=== PATIENT | male | born 1995 | race Caucasian/White ===

== ENCOUNTER 2019-08-07 11:20 | Emergency (ER) | payer BC, SELFPAY ==
--- NOTE | 2019-08-07 11:36 | ED.GENADULT ---
HPI - General Adult General Chief complaint: Wound/Laceration Stated complaint: stitches removal Time Seen by Provider: 08/07/19 11:38 Source: patient and RN notes reviewed Mode of arrival: ambulatory Limitations: no limitations History of Present Illness HPI narrative: This patient accidentally cut the palmar distal aspect of the left index finger on a piece of glass on a door handle at the [employer] on 07/23/2019. He went to [place] emergency room and had the laceration repaired with 6 interrupted sutures. He has done well since. Is been no redness or drainage. He has had no numbness or tingling sensation in the finger. He is left-handed. He did not receive any other injuries. He is otherwise felt well without any ear pain, no nasal drainage, no sore throat, no fever, no cough. He has had no nausea, no vomiting, no diarrhea. He has had no hematuria, no dysuria, no pyuria. He has has no rashes. Related Data Allergies Allergy/AdvReac Type Severity Reaction Status Date / Time Penicillins Allergy Mild Rash Verified 07/20/19 02:28 tramadol Allergy Unknown ITCHING, Verified 07/20/19 02:28 CANT SLEEP Review of Systems Review of Systems: Narrative: CONSTITUTIONAL: Denies fever, chills, or sweats. Noncontributory except as pertains to the past medical history and history of present illness. EYES: Denies visual changes, redness, or discharge. ENT: Denies rhinorrhea, congestion, sore throat, or otalgia. CARDIOVASCULAR: Denies chest pain, palpitations, or edema. RESPIRATORY: Denies cough or dyspnea. GASTROINTESTINAL: Denies abdominal pain, nausea, vomiting, or diarrhea. GENITOURINARY: Denies dysuria or hematuria. SKIN: Denies rash or itching. MUSCULOSKELETAL: Denies back pain, joint pain, or myalgia. NEUROLOGIC: Denies headache, numbness, or weakness. PSYCHIATRIC: Denies anxiety or depression. [facility] Past Medical History Medical History (Updated 08/07/19 @ 11:48 by Jose Herman MD) Asthma Migraines Peritonsillar abscess Thumb fracture right Surgical History Surgical History (Updated 07/20/19 @ 02:30 by Michelle Iraheta) H/O peritonsillar abscess drainage History of tonsillectomy and adenoidectomy Social History Social History (Updated 07/20/19 @ 02:34 by Michelle Iraheta) Smoking packs per day: 0.25 Smoking cigarettes per day: 5.0 Smoking status: Current every day smoker Comments At time of signature, I have reviewed and agree with nursing past medical, surgical, social, and family history.Please see nursing chart for further information. There is no relevant family history pertinent to the presenting complaint. Exam Narrative: Exam Narrative: GENERAL: Well-appearing, well-nourished, and in no acute distress. HEAD: Normocephalic, atraumatic. EYES: PERRLA and EOMI. EARS: TM's clear bilaterally and the canals are clear. NOSE: Nares clear, no rhinorrhea or epistaxis. THROAT:Mucous membranes moist.Oropharynx normal without erythema or exudates. NECK: Supple. No adenopathy of the neck, supraclavicular, axillary, or inguinal areas. RESPIRATORY: No respiratory distress. Airway patent. Respirations non-labored. Clear to auscultation. There are no wheezes, no rales, no retractions, no use accessory muscle respirations. Patient's not cyanotic and not dyspneic. HEART: Regular rate and rhythm. No murmur heard. Normal peripheral pulses. ABDOMEN: Soft, nontender, nondistended, normal active bowel sounds.No masses. No rebound or guarding, No organomegaly. There is no CVA pain. No pain McBurney's point. He has a negative Spence sign negative Rovsing sign. There are no pulsatile masses or audible bruits. EXTREMITIES: No clubbing/cyanosis/ edema. Normal strength & range of motion. The extreme exam is normal except for the left index finger where he has a laceration which is approximately 2 cm in length semi-curved over the palmar distal aspect of the left ring finger more over the ulnar side than the radial side and
[2019-08-07 11:38] VITALS: BP 134/91; PULSE 88; RESP 16; TEMP 36.3; O2SAT 98
== END 2019-08-07 11:53 | disposition home or self-care (01) ==
PROVIDERS: Emergency Provider Family Medicine; PCP Emergency Medicine
DX: S61.211D Laceration without foreign body of left index finger without damage to nail, subsequent encounter (principal); W25.XXXD Contact with sharp glass, subsequent encounter; J45.909 Unspecified asthma, uncomplicated; F17.200 Nicotine dependence, unspecified, uncomplicated
CPT/HCPCS: 99211; G0463

== ENCOUNTER 2023-01-31 17:20 | Emergency (ER) | payer SELFPAY ==
[2023-01-31 17:32] VITALS: BP 138/87; PULSE 106; RESP 16; TEMP 37.2; O2SAT 99
--- NOTE | 2023-01-31 18:24 | ED.SKABFB ---
HPI - Skin/Abscess/Foreign Bdy General Chief complaint: Skin/Abscess/Foreign Body Stated complaint: lump on neck Time Seen by Provider: 01/31/23 18:25 Source: patient Mode of arrival: ambulatory Limitations: no limitations History of Present Illness HPI narrative: 28-year-old male presented for complaint of nodule to the neck. He states he noticed it about 3 weeks ago and at that time it was about the size of a pea, it has increased in size. Denies tenderness, redness, or drainage to the site. Denies difficulty swallowing or breathing. Endorses a ?pulling? sensation when he tilts his head back. Related Data Allergies Allergy/AdvReac Type Severity Reaction Status Date / Time Penicillins Allergy Mild Rash Verified 12/02/21 09:20 tramadol Allergy Unknown ITCHING, Verified 12/02/21 09:20 CANT SLEEP Review of Systems Review of Systems: CONSTITUTIONAL: Denies body aches, fever, chills, or sweats. EYES: Denies visual changes, redness, or discharge. ENT: Denies rhinorrhea, congestion CARDIOVASCULAR: Denies chest pain, palpitations, or edema. RESPIRATORY: Denies cough or dyspnea. GASTROINTESTINAL: Denies abdominal pain, nausea, vomiting, or diarrhea. SKIN: per HPI MUSCULOSKELETAL: Denies back pain, joint pain, or myalgia. NEUROLOGIC: Denies headache, numbness, tingling, or weakness. [facility] Past Medical History Medical History ADHD Asthma Environmental allergies Peritonsillar abscess Thumb fracture right Surgical History Surgical History H/O peritonsillar abscess drainage (~08/2012) History of tonsillectomy and adenoidectomy (~08/2012) Social History Social History Smoking packs per day: 0.25 Smoking cigarettes per day: 5.0 Years smoked: 9 Smoking pack-years: 2.25 Smoking status: Current every day smoker Tobacco type: cigarettes Alcohol intake: current Substance use: never Substance use type: does not use Living arrangements: with family Occupation/Education: occupation Additional occupation/education comments: [employer] Gender identity (if verbalized by the patient): Male Comments At time of signature, I have reviewed and agree with nursing past medical, surgical, social and family history unless otherwise noted. Please see nursing chart for further information. There is no relevant family history pertinent to the presenting complaint Exam Narrative: GENERAL: Well-appearing HEAD: Normocephalic, atraumatic. EYES: conjunctivae clear, and EOMI. ENT: Mucous membranes moist. Oropharynx without edema, erythema or lesions. NECK: Supple. No lymphadenopathy CHEST: Clear to auscultation. HEART: Regular rate and rhythm. SKIN: Warm, dry. approx 1cm diameter soft moveable nodule to anterior neck just left of midline, no erythema, induration, tenderness or fluctuance NEURO: Alert and oriented x3. Course Course Emergency Course: Patient is aware of diagnosis, understands and agrees to treatment plan. Anticipatory guidance given. Patient agrees to follow-up as directed and is aware of reasons to seek care at the emergency department. Portions of this record may have been created with voice recognition software Level of Care: Express Care Visit Vital Signs Vital signs: Vital Signs Temperature 98.9 F 01/31/23 17:32 Pulse Rate 106 H 01/31/23 17:32 Respiratory Rate 16 01/31/23 17:32 Blood Pressure 138/87 01/31/23 17:32 Pulse Oximetry 99 01/31/23 17:32 Oxygen Delivery Room Air 01/31/23 17:32 Temperature 98.9 F 01/31/23 17:32 Pulse Rate 106 H 01/31/23 17:32 Respiratory Rate 16 01/31/23 17:32 Blood Pressure 138/87 01/31/23 17:32 Pulse Oximetry 99 01/31/23 17:32 Oxygen Delivery Room Air 01/31/23 17:32 Reviewed MDM - Skin/Abscess/Foreign Bd
== END 2023-01-31 18:41 | disposition home or self-care (01) ==
PROVIDERS: Emergency Provider Nurse Practitioner Family; PCP Family Medicine
DX: R22.1 Localized swelling, mass and lump, neck (principal); F17.210 Nicotine dependence, cigarettes, uncomplicated; J45.909 Unspecified asthma, uncomplicated
CPT/HCPCS: 99211; G0463

== ENCOUNTER 2024-01-15 15:49 | Emergency (ER) | payer SELFPAY ==
--- NOTE | 2024-01-15 15:52 | ED.NECK ---
HPI - Neck Pain/Injury General Chief Complaint: Neck Pain/Injury Stated Complaint: neck pain Time Seen by Provider: 01/15/24 15:52 Source: patient Mode of arrival: ambulatory Limitations: no limitations History of Present Illness HPI Narrative: Clark is a 29-year-old male patient presenting to the clinic today with complaints right-sided neck/shoulder pain. He reports he woke up with neck and shoulder pain 2-3 days ago. States no known injury. Denies having a headache but is having a sharp shooting sensation going into his right ear. He denies any fever, chills, URI symptoms, or any meningeal signs. Related Data Allergies Allergy/AdvReac Type Severity Reaction Status Date / Time Penicillins Allergy Mild Rash Verified 01/15/24 16:00 Review of Systems Review of Systems: Pertinent positives per HPI. Patient denies any fever, chills, rash, headache, visual changes, dizziness, cough, runny nose, sore throat, shortness of breath, chest pain, palpitations, nausea, vomiting, diarrhea, constipation, abdominal pain, or any urinary issues. PMFSH Past Medical History Medical History ADHD Asthma Environmental allergies Peritonsillar abscess Thumb fracture right Surgical History Surgical History H/O peritonsillar abscess drainage (~08/2012) History of tonsillectomy and adenoidectomy (~08/2012) Social History Social History Smoking packs per day: 0.25 Smoking cigarettes per day: 5.0 Years smoked: 9 Smoking pack-years: 2.25 Smoking status: Current every day smoker Tobacco type: cigarettes Alcohol intake: current Substance use: never Substance use type: does not use Living arrangements: with family Occupation/Education: occupation Additional occupation/education comments: [employer] Gender identity (if verbalized by the patient): Male Comments At the time of my signature, I reviewed and agree with the nursing past medical, surgical, social, and family history. There is no relevant family history pertinent to the patient complaint. Exam Narrative: General: Well-developed, well nourished, in no apparent distress Head: Normocephalic, atraumatic. Cardio: Regular rate and rhythm, s1 and s2 normal, no murmur appreciated. Resp: Clear to auscultation bilaterally, no rhonchi, rales, wheezing or rubs. Musculoskeletal: No deformity, tender to palpation over the right cervical spine paraspinous musculature and down the right posterior shoulder, very limited range of motion turning head side to side, is able to hyper flex but not hyperextend the neck due to pain, no palpable abscess or cyst, muscle strength strong and equal, peripheral pulse strong, no edema, no cyanosis, normal gait and station Course Course Emergency Course: Portions of this record may have been created with voice recognition software. Level of Care: Express Care Visit Vital Signs Vital signs: Vital Signs Temperature 36.5 C 01/15/24 16:01 Pulse Rate 102 H 01/15/24 16:01 Respiratory Rate 18 01/15/24 16:01 Blood Pressure 136/92 H 01/15/24 16:01 Pulse Oximetry 97 01/15/24 16:01 Oxygen Delivery Room Air 01/15/24 16:01 Temperature 36.5 C 01/15/24 16:01 Pulse Rate 102 H 01/15/24 16:01 Respiratory Rate 18 01/15/24 16:01 Blood Pressure 136/92 H 01/15/24 16:01 Pulse Oximetry 97 01/15/24 16:01 Oxygen Delivery Room Air 01/15/24 16:01 Vital signs reviewed MDM - Neck Pain/Injury MDM Narrative Medical decision making narrative: At the time of visit patient is resting comfortably on the exam table. Patient appears to be nontoxic. 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 Toradol 60 mg IM given in the clinic today for pain. Prescription for naproxen and Flexeril was sent to the pharmacy.
[2024-01-15 16:01] VITALS: BP 136/92; PULSE 102; RESP 18; TEMP 36.5; O2SAT 97
[2024-01-15] MEDS: KETOROLAC (*BKC) 60 MG/2 ML VIAL IM (16:13)
== END 2024-01-15 16:30 | disposition home or self-care (01) ==
PROVIDERS: Emergency Provider Nurse Practitioner Family; PCP Family Medicine
DX: M43.6 Torticollis (principal); F17.210 Nicotine dependence, cigarettes, uncomplicated; J45.909 Unspecified asthma, uncomplicated; F90.9 Attention-deficit hyperactivity disorder, unspecified type
CPT/HCPCS: 96372; 99213; G0463; J1885